=== PATIENT | male | born 1940 | race Caucasian/White ===

== ENCOUNTER 2016-09-18 14:40 | Emergency (ER) | payer MEDICARE ==
[2016-09-18 15:28] LABS: Basophils % (Auto) 0.2 % (0.0-1.8); Eosinophils % (Auto) 0.6 % (0.0-4.3); Hematocrit 43.5 % (35.5-45.6); Hemoglobin 14.4 gm/dl (11.8-15.2); Mean Corpuscular HGB Conc 33 % (32-34); Mean Corpuscular Hemoglobin 31 pg (28-32); Mean Corpuscular Volume 93 fl (84-94); Platelet Count 147 K/mm3 (140-440); Red Blood Count 4.67 M/mm3 (3.65-5.03); Red Cell Distribution Width 13.2 % (13.2-15.2); White Blood Count 11.6 K/mm3 (4.5-11.0)
[2016-09-18 15:29] LABS: Urine Drugs of Abuse Note Disclamer
[2016-09-18 15:44] LABS: Bacteria,Urine 1+ /HPF (Negative); Bilirubin,Urine NEG (Negative); Blood,Urine SM (Negative); Ketones,Urine NEG (Negative); Leukocyte Esterase,Urine NEG (Negative); Mucus,Urine 1+ /HPF; Nitrite,Urine NEG (Negative); Urobilinogen,Urine < 2.0 mg/dL (<2.0); WBC,Urine < 1.0 /HPF (0.0-6.0)
[2016-09-18 15:46] LABS: Anion Gap 13 mmol/L; Blood Urea Nitrogen 24 mg/dL (9-20); Calcium 8.9 mg/dL (8.4-10.2); Carbon Dioxide 28 mmol/L (22-30); Chloride 103.7 mmol/L (98-107); Glucose 174 mg/dL (75-100); Sodium 141 mmol/L (137-145)
--- NOTE | 2016-09-18 18:35 | Emergency Department Report ---
HPI - General Chief Complaint: Psych - HPI HPI: Patient with long-standing history of bipolar disease was brought to ED after a violent outburst. The patient was deemed to be unsafe by family members and patient was brought here for psychiatric evaluation. Patient was unable to voice any complaints. Active hallucinations and delusion upon ER evaluation. ED Past Medical Hx - Past Medical History Previous Medical History?: Yes Hx Hypertension: Yes - Surgical History Past Surgical History?: Yes Additional Surgical History: Right arm - Social History Smoking Status: Unknown if ever smoked Substance Use Type: Other - Medications Home Medications: Home Medications Medication Instructions Recorded Confirmed Last Taken Type Unobtainable 09/20/16 09/20/16 Unknown History ED Review of Systems ROS: Stated complaint: 1013- MH EVAL Other details as noted in HPI Comment: All other systems reviewed and negative Constitutional: no symptoms reported Respiratory: no symptoms reported Psychiatric: auditory hallucinations, visual hallucinations Physical Exam - Physical Exam Vital Signs: Vital Signs 09/18/16 09/18/16 14:43 15:28 Temperature 98.2 F Pulse Rate 95 H Respiratory 18 16 Rate Blood Pressure 138/76 O2 Sat by Pulse 95 Oximetry Physical Exam: Gen. alert and oriented 3 in no distress Head atraumatic normocephalic Eyes PERR LA EOMI Chest regular rate and rhythm normal S1-S2 lungs clear bilaterally Abdomen soft nondistended Back no point tenderness paravertebral tenderness Neuro no focal deficit. Psych dictation with hallucinations and delusions ED Course Vital Signs 09/18/16 09/18/16 14:43 15:28 Temperature 98.2 F Pulse Rate 95 H Respiratory 18 16 Rate Blood Pressure 138/76 O2 Sat by Pulse 95 Oximetry ED Medical Decision Making - Lab Data Result diagrams: 09/18/16 15:09 09/18/16 15:09 Critical care attestation.: If time is entered above; I have spent that time in minutes in the direct care of this critically ill patient, excluding procedure time. ED Disposition Clinical Impression: Acute psychosis Disposition: DC/TX-65 PSY HOSP/PSY UNIT Is pt being admited?: No Does the pt Need Aspirin: No Condition: Stable Referrals: PRIMARY CARE, [Primary Care Provider] - 3-5 Days
--- NOTE | 2016-09-19 15:06 | Consultation ---
History of Present Illness - Reason for Consult Consult date: 09/19/16 Reason for consult: Mental Health Evaluation Requesting physician: ARVIND VASQUES - Chief Complaint Chief complaint: "Patient does not speak guyanese" - History of Present Psychiatric Illness There's no music artist/horticultural farm manager service available at this time. Medications and Allergies Allergies Allergy/AdvReac Type Severity Reaction Status Date / Time No Known Allergies Allergy Unverified 09/18/16 14:43 Past psychiatric history - Past Medical History Past Medical History: other (Unable to obtain ) Past Surgical History: Other (Unable to obtain) - Social History Social history: other (Unable to obtain) Mental Status Exam - Vital signs Last Vital Signs Temp 98.1 F 09/18/16 21:03 Pulse 84 09/18/16 21:03 Resp 18 09/18/16 21:04 BP 141/69 09/18/16 21:03 Pulse Ox 96 09/18/16 21:03 - Exam Narrative exam: Unable to complete MSE. Results Result Diagrams: 09/18/16 15:09 09/18/16 15:09 Abnormal lab results 09/18/16 09/18/16 Range/Units 15:09 15:09 WBC 11.6 H (4.5-11.0) K/mm3 Lymph % (Auto) 10.2 L (13.4-35.0) % Seg Neutrophils % 84.4 H (40.0-70.0) % Seg Neutrophils # 9.8 H (1.8-7.7) K/mm3 BUN 24 H (9-20) mg/dL Glucose 174 H (75-100) mg/dL All other labs normal. Assessment and Plan Assessment and plan: Impression: Per the ER note Historical Dx: Bipolar DO. Recommendation/Plan: Continue 1013 and gather collateral to determine proper treatment.
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
[2016-09-20] MEDS: HALDOL PO SCH (23:00)
--- NOTE | 2016-09-21 19:41 | Progress Note ---
Subjective - Reason for Consult Consult date: 09/21/16 Reason for consult: follow up - Chief Complaint Chief complaint: "I'm normal" Belarusian interpretation done via language line ([id number]) He states he is "normal" and he wants to go home. He did not answer most questions. He states he lives with him family but does not give their names. His address and phone number listed in the record is the local police department. He is disorganized and has to be redirected. He continues to have paranoid ideations about people stealing from him. He denies psychiatric history and denies memory disturbance. He states it is 1916 and that it is August. No aggressive behavior reported by the nurse for her shift. Mental Status Exam - Vital signs Last Vital Signs Temp 97.4 F L 09/21/16 10:12 Pulse 68 09/21/16 10:12 Resp 18 09/21/16 10:12 BP 132/60 09/21/16 10:12 Pulse Ox 98 09/21/16 10:12 Assessment and Plan Impression: Psychosis Per the record, he has a long history of bipolar No SI, no HI. It is unclear if dementia is present Recommendation: Continue haldol 2mg hs for psychotic symptoms and will assess response. Consider atypical/anti-manic agent after further interviewing. Continue 1013 and transfer to inpatient psychiatric hospital.
[2016-09-21] MEDS: HALDOL PO SCH (21:54)
--- NOTE | 2016-09-22 16:00 | Progress Note ---
Subjective - Reason for Consult Consult date: 09/22/16 Reason for consult: Psychiatry Follow-up - Chief Complaint Chief complaint: "Hello" English interpretation done via language line ([id number]) 76 y.o. English male presenting to [facility] for bizzare behavior. Today patient is calm and cooperative. I used the wolof interpretation line during the assessment. Per the flare man, the patient did not understand some of the questions asked of him. He did deny SI/HI's when asked by the flare man. She stated that he would answer questions with "what" in his language. Per the staff , no behavioral disturbances noted. Mental Status Exam - Vital signs Last Vital Signs Temp 98.2 F 09/22/16 09:13 Pulse 66 09/22/16 09:13 Resp 16 09/22/16 09:13 BP 132/65 09/22/16 09:13 Pulse Ox 97 09/22/16 09:13 - Exam Narrative exam: Unable to complete MSE. Assessment and Plan Impression: Today patient is calm and cooperative. He denies SI/HI's. Recommendation/Plan: Continue 1013 with placement to inpatient psy services. Continue Haldol 2 mg PO HS for psychotic symptoms.
[2016-09-22] MEDS: HALDOL PO SCH (22:15)
[2016-09-23] MEDS: HALDOL PO SCH (22:07)
--- NOTE | 2016-09-24 14:12 | Progress Note ---
Subjective - Reason for Consult Consult date: 09/24/16 Reason for consult: follow up - Chief Complaint Chief complaint: "I'm fine Filipino interpretation done via language line ([id number]) 76 y.o. Filipino male presenting to [facility] for bizzare behavior. Today patient is calm and cooperative. I used the Filipino interpretation line during the assessment. With the help of the certified court/medical interpreter, the patient followed directions and wrote his address and phone number. The phone number was out of service. The address exists and is close by the hospital. He lives alone. He states someone else called the ambulance to bring him to the hospital. Per the staff, no behavioral disturbances noted. The certified court/medical interpreter reports he does not answer questions for the most part. Mental Status Exam - Vital signs Last Vital Signs Temp 97.9 F 09/24/16 08:16 Pulse 64 09/24/16 08:16 Resp 20 09/24/16 08:43 BP 134/72 09/24/16 08:16 Pulse Ox 97 09/24/16 08:43 Assessment and Plan - Exam Orientation: person Affect: calm Mood: congruent with affect Thought content: would not answer questions Thought Process: limited in scope Perceptions: other (unknown) Speech: less pressured Concentration: unable to pay attention Motor activity: restless Level of consciousness: alert Sleep Symptoms: Insomnia Interaction: pleasant Impression: Psychosis Per the record, he has a long history of bipolar No SI, no HI. It is unclear if dementia is present Recommendation: Continue haldol 2mg hs for psychotic symptoms and will assess response. Consider atypical/anti-manic agent after further interviewing. Continue 1013 and transfer to inpatient psychiatric hospital. The perinatal social worker team is investigating the address and any possible contacts.
[2016-09-24] MEDS: HALDOL PO SCH (22:15)
--- NOTE | 2016-09-25 10:02 | Progress Note ---
Subjective - Reason for Consult Consult date: 09/25/16 Reason for consult: Psychiatry Follow-up - Chief Complaint Chief complaint: "Hello" Armenian interpretation done via language line ([id number]) 76 y.o. Armenian male presenting to [facility] for bizzare behavior. Today patient is calm and cooperative. I used the Armenian interpretation line during the assessment. He denies SI/HI's, AVH's, and depression symptoms. He stated through the cloth classer that he live near the hospital. Per Sr. Consultant, patient reside in [place], [place]. Per the staff, no behavioral disturbances overnight. Mental Status Exam - Vital signs Last Vital Signs Temp 98.5 F 09/24/16 19:57 Pulse 78 09/24/16 19:57 Resp 16 09/24/16 19:57 BP 146/80 09/24/16 19:57 Pulse Ox 99 09/24/16 19:57 - Exam Narrative exam: MSE: Appearance: calm, cooperative Behavior: regular eye contact Speech: regular rate and tone Mood: "okay" Affect: congruent to mood Thought Process: circumstantial Thought Content: denies SI/HI's and AVH's Motor Activity: ambulatory Cognition: A/Ox 2 Insight: limited Judgment: limited Assessment and Plan Impression: Today patient is calm and cooperative. He denies SI/HI's. Patient is no threat to self or others. Recommendation/Plan: Rescind 1013. Continue Haldol 2 mg PO HS. Sr. Consultant located patient's residence ([address] [place] [address] [place] [address]) and verified by his daughter. I called [phone] when answered the person stated that he do not know the patient. Sr. Consultant involvement, patient may need placement. Patient should follow-up with a large medical facility because of the possible language barrier. We recommend [facility] for his mental health services.
--- NOTE | 2016-09-25 18:11 | Emergency Department Report ---
HPI - General Chief Complaint: Psych ED Past Medical Hx - Past Medical History Previous Medical History?: Yes Hx Hypertension: Yes - Surgical History Past Surgical History?: Yes Additional Surgical History: Right arm - Social History Smoking Status: Unknown if ever smoked Substance Use Type: Other - Medications Home Medications: Home Medications Medication Instructions Recorded Confirmed Last Taken Type Unobtainable 09/20/16 09/20/16 Unknown History ED Review of Systems ROS: Stated complaint: 1013- MH EVAL Other details as noted in HPI Constitutional: no symptoms reported Respiratory: no symptoms reported Psychiatric: auditory hallucinations, visual hallucinations Physical Exam - Physical Exam Vital Signs: Vital Signs 09/18/16 09/18/16 09/18/16 14:43 15:28 21:03 Temperature 98.2 F 98.1 F Pulse Rate 95 H 84 Respiratory 18 16 18 Rate Blood Pressure 138/76 Blood Pressure 141/69 [Left] O2 Sat by Pulse 95 96 Oximetry 09/18/16 09/19/16 09/19/16 21:04 22:34 22:35 Temperature 97.9 F Pulse Rate 69 Respiratory 18 16 16 Rate Blood Pressure Blood Pressure 136/71 [Left] O2 Sat by Pulse 96 96 Oximetry 09/20/16 09/21/16 09/21/16 08:03 10:12 22:12 Temperature 99.1 F 97.4 F L 97.8 F Pulse Rate 64 68 66 Respiratory 16 16 18 Rate Blood Pressure Blood Pressure 154/73 132/60 128/57 [Left] O2 Sat by Pulse 98 98 98 Oximetry 09/22/16 09/22/16 09/23/16 09:13 21:00 05:04 Temperature 98.2 F 98.6 F Pulse Rate 66 69 Respiratory 16 18 18 Rate Blood Pressure Blood Pressure 132/65 128/69 [Left] O2 Sat by Pulse 97 98 98 Oximetry 09/23/16 09/23/16 09/23/16 10:53 10:54 22:00 Temperature 97.6 F 97.9 F Pulse Rate 67 72 Respiratory 18 18 16 Rate Blood Pressure Blood Pressure 108/67 118/70 [Left] O2 Sat by Pulse 96 96 98 Oximetry 09/24/16 09/24/16 09/24/16 08:16 08:43 19:57 Temperature 97.9 F 98.5 F Pulse Rate 64 78 Respiratory 20 20 16 Rate Blood Pressure Blood Pressure 134/72 146/80 [Left] O2 Sat by Pulse 97 97 99 Oximetry 09/25/16 09/25/16 12:33 13:54 Temperature 98.8 F Pulse Rate 73 Respiratory 16 18 Rate Blood Pressure Blood Pressure 128/69 [Left] O2 Sat by Pulse 99 97 Oximetry ED Course Vital Signs 09/18/16 09/18/16 09/18/16 14:43 15:28 21:03 Temperature 98.2 F 98.1 F Pulse Rate 95 H 84 Respiratory 18 16 18 Rate Blood Pressure 138/76 Blood Pressure 141/69 [Left] O2 Sat by Pulse 95 96 Oximetry 09/18/16 09/19/16 09/19/16 21:04 22:34 22:35 Temperature 97.9 F Pulse Rate 69 Respiratory 18 16 16 Rate Blood Pressure Blood Pressure 136/71 [Left] O2 Sat by Pulse 96 96 Oximetry 09/20/16 09/21/16 09/21/16 08:03 10:12 22:12 Temperature 99.1 F 97.4 F L 97.8 F Pulse Rate 64 68 66 Respiratory 16 16 18 Rate Blood Pressure Blood Pressure 154/73 132/60 128/57 [Left] O2 Sat by Pulse 98 98 98 Oximetry 09/22/16 09/22/16 09/23/16 09:13 21:00 05:04 Temperature 98.2 F 98.6 F Pulse Rate 66 69 Respiratory 16 18 18 Rate Blood Pressure Blood Pressure 132/65 128/69 [Left] O2 Sat by Pulse 97 98 98 Oximetry 09/23/16 09/23/16 09/23/16 10:53 10:54 22:00 Temperature 97.6 F 97.9 F Pulse Rate 67 72 Respiratory 18 18 16 Rate Blood Pressure Blood Pressure 108/67 118/70 [Left] O2 Sat by Pulse 96 96 98 Oximetry 09/24/16 09/24/16 09/24/16 08:16 08:43 19:57 Temperature 97.9 F 98.5 F Pulse Rate 64 78 Respiratory 20 20 16 Rate Blood Pressure Blood Pressure 134/72 146/80 [Left] O2 Sat by Pulse 97 97 99 Oximetry 09/25/16 09/25/16 12:33 13:54 Temperature 98.8 F Pulse Rate 73 Respiratory 16 18 Rate Blood Pressure Blood Pressure 128/69 [Left] O2 Sat by Pulse 99 97 Oximetry ED Medical Decision Making - Lab Data Result diagrams: 09/18/16 15:09 09/18/16 15:09 - Medical Decision Making pt 1013 has been rsicnded by psych. He is stable to dc home and has no complaints. Pt's home has been located by social sciences chair Alejandro has located pt residence and pt will be dc from the ED back home Critical care attestation.: If time is entered above; I have spent that time in minutes in the direct care of this critically ill patient, excluding procedure time. ED Disposition Clinical Impression: Acute psychosis Disposition: DC-01 TO HOME OR SELFCARE Is pt being admited?: No Does the pt Need Aspirin: No Condition: Stable Instructions: Brief Psychotic Disorder (ED) Referrals: PRIMARY CAREMD [Primary Care Provider] - 3-5 Days MAGGIE CARTER MD [Staff Physician] - 3-5 Days Time of Disposition: 18:10
[2016-09-25] MEDS: HALDOL PO SCH (22:00)
[2016-09-26 18:07] LABS: Alanine Aminotransferase 23 units/L (7-56); Albumin 4.2 g/dL (3.9-5); Albumin/Globulin Ratio 1.4 %; Alkaline Phosphatase 59 units/L (35-129); Anion Gap 19 mmol/L; BUN/Creatinine Ratio 26.25; Blood Urea Nitrogen 21 mg/dL (9-20); Calcium 8.8 mg/dL (8.4-10.2); Carbon Dioxide 24 mmol/L (22-30); Chloride 103.1 mmol/L (98-107); Glucose 129 mg/dL (75-100); Potassium 4.5 mmol/L (3.6-5.0); Sodium 142 mmol/L (137-145); Total Protein 7.1 g/dL (6.3-8.2)
[2016-09-26 18:14] LABS: Basophils % (Auto) 0.4 % (0.0-1.8); Eosinophils % (Auto) 1.1 % (0.0-4.3); Hematocrit 46.6 % (35.5-45.6); Hemoglobin 15.9 gm/dl (11.8-15.2); Mean Corpuscular HGB Conc 34 % (32-34); Mean Corpuscular Hemoglobin 32 pg (28-32); Mean Corpuscular Volume 93 fl (84-94); Platelet Count 165 K/mm3 (140-440); Red Cell Distribution Width 13.2 % (13.2-15.2); White Blood Count 7.7 K/mm3 (4.5-11.0)
[2016-09-26 18:24] LABS: Bilirubin,Urine NEG (Negative); Blood,Urine NEG (Negative); Ketones,Urine NEG (Negative); Leukocyte Esterase,Urine NEG (Negative); Mucus,Urine FEW /HPF; Nitrite,Urine NEG (Negative); Protein,Urine <15 mg/dL mg/dL (Negative); Urobilinogen,Urine < 2.0 mg/dL (<2.0)
[2016-09-27] MEDS: HALDOL PO SCH ×2 (00:47→22:07)
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
[2016-09-30] MEDS: HALDOL PO SCH (19:41)
[2016-10-01 09:35] VITALS: BP 110/52
== END 2016-10-01 09:40 | disposition home or self-care (01) ==
LOC: ED 14:40
DX: F23 Brief psychotic disorder (principal); I10 Essential (primary) hypertension
CPT/HCPCS: 36415; 80048; 80053; 80307; 81001; 84443; 85025; 99285; G0480; 80320